=== PATIENT | male | born 1945 | race African-American/Black ===

== ENCOUNTER 2019-04-11 13:28 | Emergency (ER) | payer MEDICAID, OTHER ==
[~2019-04-11] VITALS: Ht 170.2 cm; Wt 73.9 kg
[2019-04-11 14:35] LABS: Basophils # (auto) 0 uL; Basophils % (auto) 0.2 % (0.0-2.0); Eosinophils # (auto) 0 uL; Eosinophils % (auto) 0.3 % (0.0-7.0); Hematocrit 35.7 % (41.0-53.0); Hemoglobin 12.5 g/dL (13.5-17.5); Lymphocytes # (auto) 2.7 uL; Lymphocytes % (auto) 54.5 % (10.0-50.0); Mean Corpuscular Hemoglobin 29.6 pg (28.0-32.0); Mean Corpuscular Hgb Conc. 35.1 g/dL (32.0-36.0); Mean Corpuscular Volume 84.6 fL (80.0-100.0); Monocytes # (auto) 0.3 uL; Monocytes % (auto) 5.1 % (0.0-12.0); Neutrophils % (auto) 39.9 % (37.0-80.0); Nucleated Red Blood Cells % 0.1 %; Platelet Count (auto) 212 10^3/uL (140-450); Red Blood Cells 4.22 10^6/uL (4.5-5.90); Red Cell Distribution Width 14.6 % (11.8-14.3); White Blood Cell 4.9 10^3/uL (4.4-10.8)
[2019-04-11 14:55] LABS: Alanine Aminotransferase 179 U/L (16-61); Albumin 3.1 g/dL (3.4-5.0); Anion Gap 11 (5-15); Aspartate Aminotransferase 87 U/L (15-37); BUN/Creatinine Ratio 13.8; Blood Urea Nitrogen 22 mg/dL (7-18); Calcium 8.4 mg/dL (8.5-10.1); Carbon Dioxide 26 mmol/L (21-32); Chloride 88 mmol/L (98-107); GFR African American 55 mL/min; GFR Non-African American 45 mL/min; Glucose 109 mg/dL (74-106); Sodium 125 mmol/L (136-145)
[2019-04-11 15:06] LABS: Alkaline Phosphatase 382 U/L (45-117); Bilirubin, Total 18.4 mg/dL (0.2-1.0); Total Protein 7.9 g/dL (6.4-8.2)
[2019-04-11 15:23] LABS: Potassium 2.9 mmol/L (3.5-5.1)
[2019-04-11] MEDS ORDERED: POTASSIUM EFFERVESENT TAB 25 MEQ PO ONE (15:30)
[2019-04-11 17:33] VITALS: BP 145/93
== END 2019-04-11 17:33 | disposition home or self-care (01) ==
LOC: ER 13:28
DX: K86.9 Disease of pancreas, unspecified (principal); R17 Unspecified jaundice; R94.5 Abnormal results of liver function studies; I10 Essential (primary) hypertension
CPT/HCPCS: 36415; 74176; 76705; 80053; 83690; 84484; 85025; 93005